=== PATIENT | male | born 1995 | race African-American/Black ===

== ENCOUNTER 2020-03-05 13:40 | Emergency (ER) | payer OTHER ==
[~2020-03-05] VITALS: Ht 175.3 cm; Wt 70.3 kg
[2020-03-05 13:58] VITALS: BP 125/75
--- NOTE | 2020-03-05 16:30 | NUR ---
Patient discharged to home in stable condition. Written and verbal after care instructions given. Patient verbalizes understanding of instruction.
== END 2020-03-05 16:30 | disposition home or self-care (01) ==
LOC: ER 13:50
DX: M54.2 Cervicalgia (principal); M54.5 Low back pain; V49.49XA Driver injured in collision with other motor vehicles in traffic accident, initial encounter; Y93.89 Activity, other specified; Y92.488 Other paved roadways as the place of occurrence of the external cause; Y99.8 Other external cause status
CPT/HCPCS: 72070-TC; 72100-TC; 72125-TC